=== PATIENT | female | born 1945 | race Caucasian/White ===

== ENCOUNTER 2017-08-02 11:23 | Emergency (ER) | payer MEDICARE, MEDICAID ==
[~2017-08-02] VITALS: Ht 167.6 cm; Wt 59.0 kg
[~2017-08-02 11:23] MED LIST: ABILIFY10 MG; ALBUTEROL2 PUFFS/17 IN; ALBUTEROL2.5 MG/NEB IN; AMBIEN 10MG TAB10 MG PO; BIAXIN500 MG PO; CLONIDINE HYDR0.1 MG PO; COREG25 MG; COREG25 MG PO; CORGARD 40MG TA40 MG PO; COZAAR 50 MG TA50 MG PO; GABAPENTIN300 MG PO; IPRATROPIUM 2.2.5 ML IH; LANTUS INS100 UNITS/ SC; LOSARTAN POTASS50 MG PO; MEDROL 4MG. DOSE4 MG PO; METFORMIN500 MG; METFORMIN500 MG PO; MINOCYCLINE 10100 MG PO; MULTI VITAMINS1 TA1 PO; NAPROSYN500 M1 PO; OMNICEF 300 MG300 MG PO; SIMVASTATIN10 MG PO; VALSARTAN PO; VENTOLIN H0.09 MG/AC IH; VERAPAMIL SR 2240 MG PO; ZOCOR20 MG PO; ZOFRAN4 MG PO
--- OUTSIDE RECORDS SUMMARY | 2017-08-02 11:35 | External Medical Summary Rpt | CCD ---
Author Author , INCOLA Organization [facility] Address Unknown Phone [email or web address] Providers Care Mechanic Name Role Phone PILY [facility], Unavailable Unavailable PILY [facility] Unavailable Unavailable SERVICE, [facility] Unavailable Unavailable SERVICE, [facility] Un[facility] Unavailable [place], [facility] Unavailable Unavailable LAB, [facility], Unavailable Unavailable [facility] Unavailable Unavailable TRANSP[facility]ATION [facility], [facility] Un[facility] Un[facility], [facility] [place] Un[place] [facility], [facility] Unavailable Unavailable INC, [facility]available Unavailable Hospital, [facility] Unavailable Unavailable IMAGING [facility], [facility], Unavailable Unavailable [facility] Unavailable Unavailable INTERNAL MED, [facility] Unavailable Unavailable INTERNAL MEDI, [facility] RAM[facility], Unavailable Unavailable [facility] Unavailable Unavailable SERVICES, [facility] Unavailable Unavailable F, [facility], [facility], Unavailable Unavailable [facility], [facility]available Unavailable LAB, [facility]Y LAB [facility] Unavailable Unavailable #[id number], [id number] Unavailable Unavailable EQUIPME, [facility]available Unavailable #[id number], [facility] Unavailable Unavailable DEPT NUCLEAR MEDICINE CHIEF TECHNOLOGIST, [facility] DEPT NUCLEAR MEDICINE CHIEF TECHNOLOGIST [facility] Unavailable Unavailable DEPT [facility], [facility] DEPT [facility] Unavailable [facility]available AGENCY, [facility] Unavailable Unavailable MEDICAL EQUI, [facility], Unavailable Unavailable [facility] Purpose Continuity of Care Document - 02-15-2009 through 2016 Problems Code Diagnosis DOS Provider Status J441 CHRONIC 07-15-2017 [facility] PULMONARY ELDER CARE DZ W/EXACERBAT ION [id number] UNSPECIFIED 07-07-2017 [facility]PL[facility] ED E119 TYPE 2 06-21-2017 [facility] WITHOUT COMPLICATIO NS E785 HYPERLIPIDE 05-21-2017 [facility] UNSPECIFIED LAB R7301 IMPAIRED 05-21-2017 [facility] GLUCOSE LAB I10 ESSENTIAL 05-15-2017 [facility] HYPERTENSIO AGENCY N J449 CHRONIC 05-15-2017 [facility] PULMONARY AGENCY DISEASE UNS R32 UNSPECIFIED 05-15-2017 [facility] URINARY HEALTH INCONTINENC AGENCY E C24729 ACQUIRED 05-15-2017 [facility] ABSENCE OF HEALTH LEFT LEG AGENCY ABOVE KNEE I739 PERIPHERAL 12-23-2016 [facility] DISEASE [place] UNSPECIFIED R69 ILLNESS 12-17-2016 [facility] UNSPECIFIED TRANSPORTAT ION SER J4520 MILD 10-06-2016 [facility] UNCOMPLICAT ED [id number] LAC W/O FB 07-23-2016 [facility] FINGER W/O INC DAMAGE NAIL INIT [id number] LAC W/O FB 07-23-2016 [facility]ANS, W/O DAMAGE PLLC NAIL INITIAL Z794 SENIOR CARE 07-23-2016 [facility] CURRENT USE [facility] OF INSULIN INC E1165 TYPE 2 06-21-2016 [facility] MELLITUS ELDER CARE WITH HYPERGLYCEM IA [id number] LACERATION 06-14-2016 [facility] W/O FOREIGN [facility] BODY LT INC WRIST INITIAL ENC [id number] OPEN BITE 06-14-2016 [facility] OF LEFT PHYSICIANS, WRIST PLLC INITIAL ENCOUNTER N00718 ACQUIRED 06-14-2016 [facility] ABSENCE OF [facility] UNSPECIFIED INC LEG BELOW KNEE R300 DYSURIA 09-06-2015 [facility] [place] Z23 ENCOUNTER 06-07-2015 [facility] IMMUNIZATIO HLTH DEPT N WILFRIDO 77019 DIAB W/OTH 05-28-2015 [facility] MANIFESTS [facility] TYPE II/UNS INTERNAL NOT MED UNCNTRL 90038 05-28-2015 [facility] [place] 81306 DIAB W/O 05-22-2015 [facility] COMP TYPE HEALTH DEPT II/UNS NOT NUCLEAR MEDICINE CHIEF TECHNOLOGIST STATED UNCNTRL 2810 PERNICIOUS 05-22-2015 [facility] ANEMIA HEALTH DEPT NUCLEAR MEDICINE CHIEF TECHNOLOGIST 4019 UNSPECIFIED 05-22-2015 [facility] ESSENTIAL HEALTH DEPT HYPERTENSIO NUCLEAR MEDICINE CHIEF TECHNOLOGIST N 8953 TRAUMAT AMP 05-22-2015 [facility] LEG HEALTH DEPT UNILAT@OR NUCLEAR MEDICINE CHIEF TECHNOLOGIST ABVE KNEE W/O COMP 31606 DIAB W/O 05-08-2015 [facility] MENTION AND COMP TYPE MEDICAL II/UNS TYPE EQUI UNCNTRL 8977 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 COMPLICATED 4439 UNSPECIFIED 04-23-2015 [facility] PERIPHERAL VALLEY VASCULAR INTERNAL DISEASE MED 37232 ULCER OF 04-23-2015 [facility] OTHER PART VAL[facility] OF FOOT INTERNAL MED 80133 EXTRINSIC 04-13-2015 [facility], [facility]ACY UNSPECIFIED LLC 22103 DIAB W/O 12-18-2014 [facility] COMP TYPE I VALLEY [JUV] NOT INTERNAL STATED MED UNCNTRL 2662 OTHER 12-18-2014 [facility] B-COMPLEX VALLEY DEFICIENCIE INTERNAL S MED 7295 PAIN IN 12-18-2014 [facility] SOFT VALLEY TISSUES OF INTERNAL LIMB MED 2724 OTHER AND 09-18-2014 [facility] UNSPECIFIED PHYSICIANS [place] HYPERLIPIDE UNA 7851 PALPITATION 09-18-2014 [place] [address] BORDERLINE 07-05-2014 [facility] GLAUC OPEN GRE ANGLE BL FINDINGS LOW RSK 13068 UNSPECIFIED 07-05-2014 [facility] [address] OTHER 07-05-2014 [facility] VITREOUS GRE OPACITIES 496 CHRONIC 09-14-2013 [facility]STRUCTION MEDICAL NEC EQUIPME 02918 PRESSURE 09-14-2013 [facility]TOCK MEDICAL EQUIPME 7854 GANGRENE 09-14-2013 [facility] 7291 UNSPECIFIED 05-17-2013 [facility]ALGIA [facility] AND RICHARD MYOSITIS 14363 ASTHMA, 02-09-2013 [facility] UNSPECIFIED VALLEY , INTERNAL UNSPECIFIED MED STATUS 8974 TRAUMAT AMP 02-09-2013 [facility] LEG UNILAT VALLEY LEVL NOT INTERNAL SPEC W/O MED COMP 6829 CELLULITIS 01-14-2013 [facility] AND ABSCESS VALLEY OF INTERNAL UNSPECIFIED MEDI SITE 71370 INSOMNIA 01-07-2013 [facility] UNSPECIFIED VALLEY INTERNAL MEDI 2767 HYPERPOTASS 11-30-2012 [facility] EMIA SUTTER INTERNAL MED 62009 HTN CKD UNS 11-23-2012 [facility] W/CKD VALLEY STAGE I INTERNAL THRU STAGE MED IV/UNS 5859 CHRONIC 11-23-2012 [facility] KIDNEY SUTTER DISEASE INTERNAL UNSPECIFIED MED 3319 UNSPECIFIED 11-21-2012 [facility]AL [facility]ICAL [place]ATIO [place]AGING [place] N 19352 UNSPECIFIED 11-21-2012 [facility] [place] ARTERY [facility] OCCLUSION W/INFARCT 4730 CHRONIC 11-21-2012 [facility] [place] MAXILLARY MEDICAL SINUSITIS IMAGING ASS 5849 ACUTE 11-21-2012 [facility]URE [facility] UNSPECIFIED V4975 LOWER LIMB 11-21-2012 [facility] AMPUTATION, [facility] BELOW KNEE INC 48635 LATERAL 07-28-2012 [facility] EPICONDYLIT SUTTER IS OF ELBOW INTERNAL MEDI 66366 ENTHESOPATH 07-28-2012 [facility] Y OF VALLEY UNSPECIFIED INTERNAL SITE MEDI 1101 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-2012 [facility] OSIS OF SUTTER NAIL INTERNAL MEDI 3536 PHANTOM 07-05-2012 [facility] LIMB SUTTER INTERNAL MEDI V0481 NEED 05-17-2012 [facility] CO PROPHYLACTI [facility] VACCINATION &INOCULATIO N FLU 5990 URINARY 02-29-2012 [facility] TRACT [facility] INFECTION INC SITE NOT SPECIFIED 7881 DYSURIA 02-16-2012 [facility] SUTTER INTERNAL MEDI V0382 NEED PROPH 11-04-2011 [facility] VACCINATION [facility] AGAINST INTERNAL STREP MED PNEUMONE 4660 ACUTE 09-06-2011 [facility] 03357 ACUTE 09-06-2011 [facility] BR[facility]CHOSPAS [facility] M SERVICES 11895 NONSPECIFIC 09-06-2011 [facility] ABNORMAL [facility]Y ELECTROCARD SERVICES IOGRAM 44718 DIAB 08-10-2011 [facility] W/RENAL [facility] MANIFESTS INC TYPE I [JUV TYPE] UNCNTRL 62733 LEUKOCYTOSI 08-10-2011 [facility] S [facility] UNSPECIFIED SERVICES 95603 PAIN IN 08-10-2011 [place] JOINT, MEDICAL SHOULDER IMAGING ASS REGION 38811 NAUSEA WITH 08-10-2011 [facility] VOMITING [facility]Y [facility] 81157 DIARRHEA 08-10-2011 [facility] 7919 OTHER 08-10-2011 [facility] NONSPECIFIC [facility] FINDING INC EXAMINATION OF URINE 05717 BACKGROUND 06-30-2011 [facility] RETINOPATHY 39672 OBST 01-23-2011 [facility] CHRONIC [facility] BRONCHITIS INC W/ACUTE BRONCHITIS 49179 SHORTNESS 01-23-2011 [facility] 50941 OTHER 01-23-2011 [facility] DYSPNEA AND AMBULANCE SERVICE RESPIRATORY ABNORMALITI ES 4739 UNSPECIFIED 10-21-2010 [facility] SINUSITIS VALLEY INTERNAL MEDI 490 BRONCHITIS 10-21-2010 [facility] NOT VALLEY SPECIFIED INTERNAL ACUTE OR MEDI CHRONIC V571 OTHER 05-22-2010 [facility] PHYSICAL [facility] THERAPY INC 21535 DIAB 03-17-2010 [facility] W/UNSPEC PHARMACY COMP TYPE I #591 [JUV TYPE] UNCNTRL 5283 CELLULITIS 06-08-2009 [facility] AND ABSCESS VALLEY OF ORAL INTERNAL SOFT MED TISSUES 6826 CELLULITIS 05-25-2009 [facility]ESS [facility] OF LEG INTERNAL EXCEPT FOOT MED 55245 DIABETES 04-24-2009 [facility] W/[facility] MED LAB SIS TYPE II/UNS TYPE UNCNTRL 6869 UNSPEC 03-19-2009 [facility] LOCAL MED LAB INFECTION SKIN&SUBCUT ANEOUS TISSUE 2859 UNSPECIFIED 03-01-2009 [facility] ANEMIA MED LAB V5869 LONG-TERM 02-26-2009 [facility] (CURRENT) MED LAB USE OF OTHER MEDICATIONS 0389 UNSPECIFIED 02-20-2009 [facility] SEPTICEMIA SUTTER INTERNAL MED 48269 SEPSIS 02-20-2009 [facility] INTERNAL MED V4970 LOWER LIMB 02-20-2009 [facility] AMPUTATION AMBULANCE STATUS SERVICE UNSPEC LEVEL 60951 ATHEROSLERO 02-16-2009 [facility] & [facility] CYTOLOGY LAB EXTREMITIES W/GANGRENE 27394 DIAB 02-15-2009 [facility] W/PERIPH [facility] CIRC D/O INC TYPE II/UNS TYPE UNCNTRL 01302 DEHYDRATION 02-15-2009 [facility] INC 7078 CHRONIC 02-15-2009 [facility] ULCER OF [facility] OTHER INC SPECIFIED SITE 276.7 Hyperkalemi [facility] 794.4 Abnormal [place] renal [facility] Allergies, Adverse Reactions, Alerts Type Drug Allergy Adverse Reaction to Substance Substance Reaction Severity Penicillin Unknown Unknown Penicillin G Unknown Unknown Clinical Alert Notifications Alert Diabetes: no eye exam in the last 365 days Diabetes: no lipid panel in the last 365 days Diabetes: no urine protein screening in the last 365 days Medications Na ND Rx Da Fi Fi Am Da Di Ph RX Ph St me C No te ll ll ou ys ag ar # ys at rm s nt no ma ic us Or Da si cy ia de te s n re d MA 00 03 0 No PA 90 -2 P 41 5- Lo 32 98 20 ng 5 26 13 er MG 1 Ac TA ti BL ve ET NA 51 03 1 No DO 07 -2 LO 90 5- Lo L 81 20 ng 20 22 13 er 0 MG Ac ti TA ve BL ET Ve 00 03 1 No ra 17 -2 pa 24 5- Lo mi 28 20 ng l 01 13 er Sr 0 Ac 24 ti 0M ve G Ta bl et Ga 68 03 1 No ba 08 -2 pe 40 5- Lo nt 08 20 ng in 00 13 er 1 30 Ac 0M ti G ve Ca ps ul e SO 00 03 1 No DI 40 -2 UM 97 4- Lo 98 20 ng CH 30 13 er LO 9 RI Ac DE ti ve 0. 9% SO RICKEY TI ON Sa 63 03 1 No li 80 -2 ne 70 4- Lo 10 20 ng Fl 07 13 er us 5 h Ac 10 ti ML ve Sy ri ng e SO 00 03 0 No DI 40 -2 UM 96 4- Lo 63 20 ng BI 73 13 er CA 4 RB Ac ti 8. ve 4% AB CHEVY JE CT CA 63 03 0 No LC 32 -2 IU 30 4- Lo M 31 20 ng GL 11 13 er UC 0 ON Ac AT ti E ve 10 % AL SP 46 03 0 No S 28 -2 15 70 4- Lo 00 20 ng GM 66 13 er /6 0 0 Ac ML ti ve MOREJON SP EN SI ON FS 03 2 No -2 BL 4- Lo OO 20 ng D 13 er MOREJON GA Ac R ti ve HU 00 03 2 No MA 00 -2 LO 27 4- Lo G 51 20 ng 10 01 13 er 0 7 UN Ac IT ti S/ ve ML AL ON 00 03 2 No DA 64 -2 NS 16 4- Lo ET 08 20 ng RO 02 13 er N 5 HC Ac L ti 4 ve MG /2 ML AL BI 00 06 10 01 3. 9 ME 37 MC Ac SA 71 -2 -0 00 D 00 KE ti C- 30 3- 8- 0 CA 59 OK ve EV 10 20 20 RE 6 E AC 90 09 09 JR 5 PH 10 AR WI MA LL MG CY IA M MOREJON LL F PP C OS IT OR Y AT 11 08 10 00 57 3 ME 38 MC Ac RA 70 -1 -0 .0 D 36 KE ti C- 10 7- 8- 00 CA 46 OK ve TA 02 20 20 RE 3 E IN 22 09 09 JR 3 PH CR AR WI EA MA LL M CY IA M LL F C MA 00 06 10 01 30 5 ME 37 MC Ac PA 90 -2 -0 .0 D 00 KE ti P 41 3- 8- 00 CA 59 OK ve 50 98 20 20 RE 0 E 0 86 09 09 JR MG 1 PH AR WI TA MA LL BL CY IA ET M LL F C BA 11 07 10 01 57 3 ME 37 MC Ac ZA 70 -2 -0 .0 D 71 KE ti 10 2- 8- 00 CA 20 OK ve OK 04 20 20 RE 7 E OT 62 09 09 JR EC 3 PH T AR WI CR MA LL EA CY IA M M LL F C NA 00 09 09 00 60 30 WA 70 MC Ac DO 37 -1 -2 .0 L- 36 KE ti LO 81 5- 4- 00 MA 97 OK ve L 17 20 20 RT 3 E 40 10 09 09 JR 1 PH MG AR WI MA LL TA CY IA BL M ET #5 F 91 00 06 09 00 30 3 ME 37 MC Ac 40 -2 -2 .0 D 00 KE ti 60 3- 4- 00 CA 57 OK ve 35 20 20 RE 4 E 70 09 09 JR 5 PH AR WI MA LL CY IA M LL F C ZO 00 09 09 00 14 14 WA 44 MC Ac LP 09 -1 -2 .0 L- 79 KE ti ID 30 5- 4- 00 MA 70 OK ve EM 07 20 20 RT 2 E 40 09 09 JR TA 1 PH RT AR WI RA MA LL TE CY IA M 10 #5 F 91 MG TA BL ET LA 00 09 09 00 10 28 WA 70 MC Ac NT 08 -1 -2 .0 L- 36 KE ti US 82 5- 4- 00 MA 97 OK ve 22 20 20 RT 5 E 10 03 09 09 JR 0 3 PH UN AR WI IT MA LL /M CY IA L M #5 F AL 91 MOREJON 53 09 09 00 30 15 WA 70 MC Ac LF 74 -1 -2 .0 L- 37 KE ti AM 60 8- 4- 00 MA 41 OK ve ET 27 20 20 RT 7 E HO 20 09 09 JR XA 5 PH ZO AR WI LE MA LL -T CY IA MP M #5 F DS 91 TA BL ET ME 00 09 09 00 60 30 WA 70 MC Ac TF 78 -1 -2 .0 L- 36 KE ti OR 15 5- 4- 00 MA 97 OK ve OK 05 20 20 RT 4 E N 06 09 09 JR HC 1 PH L AR WI 50 MA LL 0 CY IA MG M #5 F TA 91 BL ET 00 09 09 00 30 3 ME 38 MC Ac 40 -0 -2 .0 D 83 KE ti 60 3- 4- 00 CA 72 OK ve 35 20 20 RE 6 E 70 09 09 JR 5 PH AR WI MA LL CY IA M LL F C Vital Signs 11-23-2012 09:30 Name Value Interpretat Reference Comment ion Range Body 98.6 [degF] Temperature BP 91 mm[Hg] Diastolic BP Systolic 203 mm[Hg] Heart 89 /min Rate/Pulse Respiratory 20 /min Rate 11-23-2012 07:00 Name Value Interpretat Reference Comment ion Range O2% 94 % 11-21-2012 21:15 Name Value Interpretat Reference Comment ion Range Height 167.64 cm Weight 71.697 kg Measured 11-21-2012 19:01 Name Value Interpretat Reference Comment ion Range BP 52 mm[Hg] Diastolic BP Systolic 103 mm[Hg] 11-21-2012 17:18 Name Value Interpretat Reference Comment ion Range Body 97.8 [degF] Temperature Heart 58 /min Rate/Pulse O2% 98 % Respiratory 20 /min Rate Weight 0 [oz_av] Measured Results Labs Lab Lab Date Result Refere Interp Status Commen Order Detail nces retati t Range on COMPREHENSIVE METABOLIC PANEL (11-23-2012 06:28) Glucose 142 74-106 complet 013 mg/dL ed Bld-mCn 06:28 c BUN 12 7-18 complet Bld-mCn 013 mg/dL ed c 06:28 Creat 1.0 0.6-1.0 complet SerPl-m 013 mg/dL ed Cnc 06:28 ESTIMAT 60 50-200 complet ED 013 ML/MIN ed CREATIN 06:28 INE CLEARAN CE GFR 55 59- complet (ESTIMA 013 ML/MIN ed ZENOBIA) 06:28 Sodium 140 136-145 complet SerPl-s 013 mmoL/L ed Cnc 06:28 Potassi 4.0 3.5-5.1 complet um 013 mmoL/L ed SerPl-s 06:28 Cnc Chlorid 107 98-107 complet e 013 mmoL/L ed SerPl-s 06:28 Cnc CO2 11-23-2 25 21.0-32 complet SerPl-s 013 mmoL/L .0 ed Cnc 06:28 Calcium 11-23-2 8.6 8.5-10. complet 013 mg/dL 1 ed SerPl-m 06:28 Cnc Prot 11-23-2 7.2 6.4-8.2 complet SerPl-m 013 gm/dL ed Cnc 06:28 Albumin 11-23-2 3.2 3.4-5.0 complet 013 gm/dL ed SerPl-m 06:28 Cnc Globuli 11-23-2 4.0 1.3-3.2 complet n 013 gm/dL ed Ser-mCn 06:28 c Albumin 11-23-2 0.8 UNK 1.1-1.8 complet /Glob 013 ed SerPl-m 06:28 Rto Bilirub 11-23-2 0.3 0.2-1.0 complet 013 mg/dL ed SerPl-m 06:28 Cnc AST 11-23-2 11 U/L 15-37 complet SerPl-c 013 ed Cnc 06:28 ALT 11-23-2 27 U/L 30-65 complet SerPl-c 013 ed Cnc 06:28 ALP 11-23-2 116 U/L 50-136 complet SerPl-c 013 ed Cnc 06:28 CBC with AUTO DIFF (11-23-2012 06:28) WBC # 11-23-2 9.0 4.8-10. complet Bld 013 K/MM3 8 ed Auto 06:28 RBC # 11-23-2 3.93 4.2-5.4 complet Bld 013 M/mm3 ed Auto 06:28 Hgb 11-23-2 11.0 12.2-16 complet Bld-mCn 013 g/dL .2 ed c 06:28 Hct Fr 2 34.2 % 37.0-47 complet Bld 013 .0 ed 06:28 MCV RBC 11-23-2 87.2 fl 82.2-97 complet 013 .8 ed 06:28 MCH RBC 11-23-2 28.0 pg 27-31.2 complet Qn 013 ed Auto 06:28 MEAN 11-23-2 32.2 31.8-35 complet CORPUSC 013 g/dl .4 ed ULAR 06:28 HGB CONC RDW RBC 11-23-2 14.3 % 11.5-17 complet Auto 013 .5 ed 06:28 Platele -26-2 293 142-424 complet t Bld 013 K/mm3 ed Ql 06:28 Manual MEAN 11-23-2 7.8 fl 7.4-10. complet PLATELE 013 4 ed T 06:28 VOLUME Granulo 11-23-2 68.1 % 37.0-80 complet cytes 013 .0 ed Fr Bld 06:28 Auto LYMPH % --2 24.4 % 10-50.0 complet 013 ed 06:28 Monocyt 03-26-2 6.1 % 1.7-9.3 complet es Fr 013 ed Bld 06:28 Auto Eosinop -26-2 1.0 % 0.1-12. complet hil Fr 013 0 ed Bld 06:28 Auto Basophi -26-2 0.3 % 0.1-2.0 complet ls Fr 013 ed Bld 06:28 Auto Granulo 26-2 6.2 1.8-7.8 complet cytes # 013 K/mm3 ed Bld 06:28 Auto Lymphoc -26-2 2.2 0.7-4.5 complet ytes Fr 013 K/mm3 ed Bld 06:28 Auto Monocyt 03-26-2 0.6 0.1-1.0 complet es # 013 K/mm3 ed Bld 06:28 Auto Eosinop 03-26-2 0.1 0.0-0.4 complet hil # 013 K/mm3 ed Bld 06:28 Auto Basophi -26-2 0.0 0-0.2 complet ls # 013 K/MM3 ed Bld 06:28 Auto Glucose BldC [facility]comtr[facility] (11-22-2012 20:33) Glucose 120 70-110 complet BldC 013 mg/dl ed Glucomt 20:33 r-mCnc Glucose BldC Glucomtr-nc (11-22-2012 16:36) Glucose 247 70-110 complet BldC 013 mg/dl ed Glucomt 16:36 r-mCnc Glucose BldC Glucomtr-nc (11-22-2012 11:42) Glucose 03-25-2 149 70-110 complet BldC 013 mg/dl ed Glucomt 11:42 r-[facility] BASIC METABOLIC PANEL (11-22-2012 06:45) Glucose 124 74-106 complet 013 mg/dL ed Bld-mCn 06:45 c BUN 26 7-18 complet Bld-mCn 013 mg/dL ed c 06:45 Creat 1.1 0.6-1.0 complet SerPl-m 013 mg/dL ed Cnc 06:45 ESTIMAT 55 50-200 complet ED 013 ML/MIN ed CREATIN 06:45 INE CLEARAN CE GFR 49 59- complet (ESTIMA 013 ML/MIN ed ZENOBIA) 06:45 Sodium 141 136-145 complet SerPl-s 013 mmoL/L ed Cnc 06:45 Potassi 4.8 3.5-5.1 complet um 013 mmoL/L ed SerPl-s 06:45 Cnc Chlorid 107 98-107 complet e 013 mmoL/L ed SerPl-s 06:45 Cnc CO2 27 21.0-32 complet SerPl-s 013 mmoL/L .0 ed Cnc 06:45 Calcium 8.5 8.5-10. complet 013 mg/dL 1 ed SerPl-m 06:45 Cnc Glucose BldC [facility] (11-22-2012 06:39) Glucose 134 70-110 complet BldC 013 mg/dl ed Glucomt 06:39 [facility] Potassium SerPl-sCnc (11-21-2012 19:30) Potassi 7.8 3.5-5.1 High complet um 013 mmoL/L alert ed SerPl-s 19:30 [facility] COMPREHENSIVE METABOLIC PANEL (11-21-2012 17:45) Glucose 192 74-106 complet 013 mg/dL ed Bld-mCn 17:45 c BUN 38 7-18 complet Bld-mCn 013 mg/dL ed c 17:45 Creat 1.7 0.6-1.0 complet SerPl-m 013 mg/dL ed Cnc 17:45 ESTIMAT 03-24-2 36 50-200 complet ED 013 ML/MIN ed CREATIN 17:45 INE CLEARAN CE GFR 30 59- complet (ESTIMA 013 ML/MIN ed ZENOBIA) 17:45 Sodium 137 136-145 complet SerPl-s 013 mmoL/L ed Cnc 17:45 Potassi 7.3 3.5-5.1 High complet um 013 mmoL/L alert ed SerPl-s 17:45 Cnc Chlorid 104 98-107 complet e 013 mmoL/L ed SerPl-s 17:45 Cnc CO2 27 21.0-32 complet SerPl-s 013 mmoL/L .0 ed Cnc 17:45 Calcium 8.7 8.5-10. complet 013 mg/dL 1 ed SerPl-m 17:45 Cnc Prot 7.6 6.4-8.2 complet SerPl-m 013 gm/dL ed Cnc 17:45 Albumin 3.5 3.4-5.0 complet 013 gm/dL ed SerPl-m 17:45 Cnc GLOBULI 4.0 1.3-3.2 complet N 013 gm/dL ed 17:45 ALB/SWETA 0.9 UNK 1.1-1.8 complet B RATIO 013 ed 17:45 Bilirub 2 0.2 0.2-1.0 complet 013 mg/dL ed SerPl-m 17:45 Cnc AST 10 U/L 15-37 complet SerPl-c 013 ed Cnc 17:45 ALT 28 U/L 30-65 complet SerPl-c 013 ed Cnc 17:45 ALP 132 U/L 50-136 complet SerPl-c 013 ed Cnc 17:45 ACETONE, SERUM (11-21-2012 17:45) ACETONE NONE NOT complet , SERUM 013 DETECTE DETECTD ed 17:45 D CBC with AUTO DIFF (11-21-2012 17:45) WBC # 11-21-2 13.8 4.8-10. complet Bld 013 K/MM3 8 ed Auto 17:45 RBC # 11-21-2 4.19 4.2-5.4 complet Bld 013 M/mm3 ed Auto 17:45 Hgb 03-24-2 11.7 12.2-16 complet Bld-mCn 013 g/dL .2 ed c 17:45 Hct Fr -24-2 36.7 % 37.0-47 complet Bld 013 .0 ed 17:45 MCV RBC 03-24-2 87.6 fl 82.2-97 complet 013 .8 ed 17:45 MCH RBC -24-2 27.8 pg 27-31.2 complet Qn 013 ed Auto 17:45 MEAN -24-2 31.7 31.8-35 complet CORPUSC 013 g/dl .4 ed ULAR 17:45 HGB CONC RDW RBC -24-2 14.5 % 11.5-17 complet Auto 013 .5 ed 17:45 Platele 03-24-2 335 142-424 complet t Bld 013 K/mm3 ed Ql 17:45 Manual MEAN 24-2 9.1 fl 7.4-10. complet PLATELE 013 4 ed T 17:45 VOLUME Granulo -24-2 74.6 % 37.0-80 complet cytes 013 .0 ed Fr Bld 17:45 Auto LYMPH % 03-24-2 18.9 % 10-50.0 complet 013 ed 17:45 Monocyt 03-24-2 4.5 % 1.7-9.3 complet es Fr 013 ed Bld 17:45 Auto Eosinop 03-24-2 1.6 % 0.1-12. complet hil Fr 013 0 ed Bld 17:45 Auto Basophi 03-24-2 0.4 % 0.1-2.0 complet ls Fr 013 ed Bld 17:45 Auto Granulo 03-24-2 10.3 1.8-7.8 complet cytes # 013 K/mm3 ed Bld 17:45 Auto Lymphoc 03-24-2 2.6 0.7-4.5 complet ytes Fr 013 K/mm3 ed Bld 17:45 Auto Monocyt 03-24-2 0.6 0.1-1.0 complet es # 013 K/mm3 ed Bld 17:45 Auto Eosinop 03-24-2 0.2 0.0-0.4 complet hil # 013 K/mm3 ed Bld 17:45 Auto Basophi 03-24-2 0.1 0-0.2 [facility] # 013 K/MM3 ed Bld 17:45 Auto Procedures Procedure DOS Code Location Performer Comment [id number] LYDIA FREEMAN N ABOVE 9 [facility] Encounters Encounter Start End Date Code Location Performer Type Date HOME [facility], 7 7 HOME [facility]PATIENT [facility] [place] [facility], 7 7 HOME [facility] [place] [facility], 7 7 HOME [facility] [place] [facility], 6 6 HOME INPATIENT HEALTH [facility] LYDIA - 6 6 [facility] LYDIA - 6 6 [facility] 6 6 HOME INPATIENT HEALTH AGENCY [place] [facility], 5 5 DIST OTHER HEALTH [facility]PT [facility], 5 5 DIST OTHER HEALTH DEPT [facility] LYDIA - 5 5 [facility] OUTPATIEN INC [facility] LYDIA - 3 3 [facility] LYDIA [facility] 3 3 [facility] Inpatient [facility] Lydia Mercado ([place]) 3 17:52 3 09:30 [facility] LYDIA - 3 3 [facility] INPATIENT [facility] LYDIA - 2 2 [facility] LYDIA [facility] 2 2 [facility] LYDIA - 2 2 [facility] LYDIA - 2 2 [facility] LYD[facility] - 2 2 [facility] - 2 2 [facility] LYDIA [facility] 2 2 [facility] LYDIA - 2 2 [facility] LYDIA - 1 1 [facility] LYDIA [facility] 1 1 [facility] LYDIA - 0 0 [facility] HOME [facility], 9 9 DIST OTHER HEALTH DEPT [facility] HOME [facility], 9 9 DIST OTHER HEALTH [facility], 9 9 DIST OTHER HEALTH DEPT NUCLEAR MEDICINE CHIEF TECHNOLOGIST [facility] 9 9 [facility] 9 9 [facility] 9 9 [facility] 9 9 [facility] HOSPITAL LYDIA - 9 9 [facility] INPATIENT INC
--- OUTSIDE RECORDS SUMMARY | 2017-08-02 11:35 | External Medical Summary Rpt | CCD ---
Author Author , NICOLA Organization NICOLA Address Unknown Phone [email or web address] Care Team Providers Care Chair Mechanic Name Role Phone PILY HSIEH, Unavailable Unavailable PILY HSIEH [email or web address] Unavailable Unavailable SERVICE, [email or web address] Unavailable Unavailable SERVICE, [email or web address] Unavailable Unavailable [place], [facility] Unavailable Unavailable LAB, [facility], Unavailable Unavailable [facility] Unavailable Unavailable TRANSPORTATION SER, [facility] Unavailable Unavailable CENTER, [facility] Unavailable Unavailable CARE, [facility] Unavailable Unavailable INC, [facility] Unavailable Unavailable Hospital, [facility] MEDICAL Unavailable Unavailable IMAGING ASS, [facility], Unavailable Unavailable [facility] Unavailable Unavailable INTERNAL MED, [facility] INTERNAL MED [facility] Unavailable Unavailable INTERNAL MEDI, [facility] LINDSAY RAMSAY, Unavailable Unavailable LINDSAY RAMSAY [facility] Unavailable Unavailable SERVICES, [facility] Unavailable Unavailable F, [facility] Un[facility] Unavailable LLC, [facility], Unavailable Unavailable [facility], [facility] Unavailable Unavailable LAB, PATHOLOGY & CYTOLOGY LAB [facility] Unavailable Unavailable #[id number], [id number] Unavailable Unavailable EQUIPME, [facility] Unavailable [facility]available #591, [facility] Unavailable [facility]available DEPT COUTURE ALTERATIONS DRESSMAKER, [facility] DEPT COUTURE ALTERATIONS [facility] Unavailable Unavailable DEPT [facility], [facility] DEPT [facility] Unavailable Unavailable AGENCY, [facility] Unavailable Unavailable MEDICAL EQUI, [facility], Unavailable Unavailable [facility] Purpose Continuity of Care Document - 02-15-2009 through 2016 Problems Code Diagnosis DOS Provider Status J441 CHRONIC 07-15-2017 [facility] OBSTRUCTIVE [facility] PULMONARY ELDER CARE DZ W/EXACERBAT ION Q23810 UNSPECIFIED 07-07-2017 [facility]PL[facility] [...] [facility] URINARY HEALTH INCONTINENC AGENCY E [id number] ACQUIRED 05-15-2017 [facility] ABSENCE OF HEALTH LEFT LEG AGENCY ABOVE KNEE I739 PERIPHERAL 12-23-2016 [facility] DISEASE [place] UNSPECIFIED R69 ILLNESS 12-17-2016 [facility] UNSPECIFIED TRANSPORTAT ION SER J4520 MILD 10-06-2016 [facility] UNCOMPLICAT ED [id number] LAC W/O FB 07-23-2016 [facility] RT [facility] FINGER W/O INC DAMAGE NAIL INIT [id number] LAC W/O FB 07-23-2016 [facility] UNS [facility]ANS, W/O DAMAGE PLLC NAIL INITIAL Z794 RESIDENTIAL 07-23-2016 [facility] CURRENT USE [facility] OF INSULIN INC E1165 TYPE 2 06-21-2016 [facility] DIABETES [facility] MELLITUS ELDER CARE WITH HYPERGLYCEM IA [id number] LACERATION 06-14-2016 [facility] W/O FOREIGN [facility] BODY LT INC WRIST INITIAL ENC [id number] OPEN BITE 06-14-2016 [facility] OF LEFT PHYSICIANS, WRIST PLLC INITIAL ENCOUNTER F75156 ACQUIRED 06-14-2016 [facility] ABSENCE OF [facility] UNSPECIFIED INC LEG BELOW KNEE R300 DYSURIA 09-06-2015 [facility] LA Z23 ENCOUNTER 06-07-2015 [facility] FOR DISTRICT IMMUNIZATIO HLTH DEPT N WILFRIDO 75603 DIAB W/OTH 05-28-2015 [facility] MANIFESTS [facility] TYPE II/UNS INTERNAL NOT MED UNCNTRL 52946 05-28-2015 [facility] TRANSPORTAT ION SER 45722 DIAB W/O 05-22-2015 [facility] DIST COMP TYPE HEALTH DEPT II/UNS NOT COUTURE ALTERATIONS DRESSMAKER STATED UNCNTRL 2810 PERNICIOUS 05-22-2015 [facility] ANEMIA HEALTH DEPT COUTURE ALTERATIONS DRESSMAKER 4019 UNSPECIFIED 05-22-2015 [facility] ESSENTIAL HEALTH DEPT HYPERTENSIO COUTURE ALTERATIONS DRESSMAKER N 8916 TRAUMAT AMP 05-22-2015 [facility] LEG HEALTH DEPT UNILAT@OR COUTURE ALTERATIONS DRESSMAKER ABVE KNEE W/O COMP 41832 DIAB W/O 05-08-2015 [facility] MENTION AND COMP TYPE MEDICAL II/UNS TYPE EQUI UNCNTRL 8977 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 COMPLICATED 4439 UNSPECIFIED 04-23-2015 [facility] PERIPHERAL [facility] VASCULAR INTERNAL DISEASE MED 23592 ULCER OF 04-23-2015 [facility] OTHER PART [facility] OF FOOT INTERNAL MED 86846 EXTRINSIC 04-13-2015 [facility], PHARMACY UNSPECIFIED LLC 56730 DIAB W/O 12-18-2014 [facility] COMP TYPE I VALLEY [JUV] NOT INTERNAL STATED MED UNCNTRL 2662 OTHER 12-18-2014 [facility] B-COMPLEX VAL[facility] DEFICIENCIE INTERNAL S MED 7295 PAIN IN 12-18-2014 [facility] SOFT [facility] TISSUES OF INTERNAL LIMB MED 2724 OTHER AND 09-18-2014 [facility] UNSPECIFIED PHYSICIANS [place] HYPERLIPIDE UNA 7851 PALPITATION 09-18-2014 [place] [address] BORDERLINE 07-05-2014 [facility] OPEN GRE ANGLE BL FINDINGS LOW RSK 07722 UNSPECIFIED 07-05-2014 [facility] [place] [address] OTHER 07-05-2014 [facility] VITREOUS GRE OPACITIES 496 CHRONIC 09-14-2013 [facility] OBSTRUCTION MEDICAL NEC EQUIPME 94344 PRESSURE 09-14-2013 [facility] ULCER HOME BUTTOCK MEDICAL EQUIPME 7854 GANGRENE 09-14-2013 [facility] 7291 UNSPECIFIED 05-17-2013 [facility]ALGIA [facility]IANS AND RICHARD MYOSITIS 88291 ASTHMA, 02-09-2013 [facility] UNSPECIFIED VALLEY , INTERNAL UNSPECIFIED MED STATUS 8974 TRAUMAT AMP 02-09-2013 [facility] LEG UNILAT VALLEY LEVL NOT INTERNAL SPEC W/O MED COMP 6829 CELLULITIS 01-14-2013 [facility] AND ABSCESS VAL[facility] OF INTERNAL UNSPECIFIED MEDI SITE 39606 INSOMNIA 01-07-2013 [facility] UNSPECIFIED VALLEY INTERNAL MEDI 2767 HYPERPOTASS 11-30-2012 [facility] EMIA [place] INTERNAL MED 40962 HTN CKD UNS 11-23-2012 [facility] W/CKD VALLEY STAGE I INTERNAL THRU STAGE MED IV/UNS 5859 CHRONIC 11-23-2012 [facility] KIDNEY [place] DISEASE INTERNAL UNSPECIFIED MED 3319 UNSPECIFIED 11-21-2012 [facility] [place] [address] UNSPECIFIED 11-21-2012 [facility] ART[facility] OCCLUSION W/INFARCT 4730 CHRONIC 11-21-2012 [facility] SINUSITIS [facility] 5849 ACUTE 11-21-2012 [facility] FAILURE SERVICES UNSPECIFIED V4975 LOWER LIMB 11-21-2012 [facility] AMPUTATION, [facility] BELOW KNEE INC 70718 LATERAL 07-28-2012 [facility] EPICONDYLIT [place] IS OF ELBOW INTERNAL MEDI 40981 ENTHESOPATH 07-28-2012 [facility] Y OF VALLEY UNSPECIFIED INTERNAL SITE MEDI 1101 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-2012 [facility] OSIS OF [place] NAIL INTERNAL MEDI 3536 PHANTOM 07-05-2012 [facility] LIMB [place] INTERNAL MEDI V0481 NEED 05-17-2012 [facility] CO PROPHYLACTI [facility] VACCINATION &INOCULATIO N FLU 5990 URINARY 02-29-2012 [facility] TRACT [facility] INFECTION INC SITE NOT SPECIFIED 7881 DYSURIA 02-16-2012 [facility] [place] INTERNAL MEDI V0382 NEED PROPH 11-04-2011 [facility] VACCINATION [facility] AGAINST INTERNAL STREP MED PNEUMONE 4660 ACUTE 09-06-2011 [facility] 56657 ACUTE 09-06-2011 [facility] BRONCHOSPAS [facility]ERGENC[facility] M SERVICES 19530 NONSPECIFIC 09-06-2011 [facility] ABNORMAL [facility]ERGENCY ELECTROCARD SERVICES IOGRAM 23083 DIAB 08-10-2011 [facility] W/RENAL [facility] MANIFESTS INC TYPE I [JUV TYPE] UNCNTRL 94081 LEUKOCYTOSI 08-10-2011 [facility] S [facility]ERGENCY UNSPECIFIED SERVICES 31540 PAIN IN 08-10-2011 [facility]ICAL SHOULDER [facility] REGION 38784 NAUSEA WITH 08-10-2011 [facility] VOMITING [facility]Y SERVICES 10024 DIARRHEA 08-10-2011 [facility] 7919 OTHER 08-10-2011 [facility] NONSPECIFIC [facility] FINDING INC EXAMINATION OF URINE 86765 BACKGROUND 06-30-2011 [facility] RETINOPATHY 47825 OBST 01-23-2011 [facility] CHRONIC [facility] BRONCHITIS INC W/ACUTE BRONCHITIS 62040 SHORTNESS 01-23-2011 [facility] 50706 OTHER 01-23-2011 [facility] DYSPNEA AND AMBULANCE SERVICE RESPIRATORY ABNORMALITI ES 4739 UNSPECIFIED 10-21-2010 [facility] SINUSITIS VALLEY INTERNAL MEDI 490 BRONCHITIS 10-21-2010 [facility] NOT VALLEY SPECIFIED INTERNAL ACUTE OR MEDI CHRONIC V571 OTHER 05-22-2010 [facility] PHYSICAL [facility] THERAPY INC 94839 DIAB 03-17-2010 [facility] W/UNSPEC PHARMACY COMP TYPE I #591 [JUV TYPE] UNCNTRL 5283 CELLULITIS 06-08-2009 [facility] AND ABSCESS [facility] OF ORAL INTERNAL SOFT MED TISSUES 6826 CELLULITIS 05-25-2009 [facility]ESS [facility] OF LEG INTERNAL EXCEPT FOOT MED 90803 DIABETES 04-24-2009 [facility] W/[facility] MED LAB SIS TYPE II/UNS TYPE UNCNTRL 6869 UNSPEC 03-19-2009 [facility] LOCAL MED LAB INFECTION SKIN&SUBCUT ANEOUS TISSUE 2859 UNSPECIFIED 03-01-2009 [facility] ANEMIA MED LAB V5869 LONG-TERM 02-26-2009 [facility] (CURRENT) MED LAB USE OF OTHER MEDICATIONS 0389 UNSPECIFIED 02-20-2009 [facility] SEPTICEMIA [place] INTERNAL MED 86826 SEPSIS 02-20-2009 [facility] INTERNAL MED V4970 LOWER LIMB 02-20-2009 [facility] AMPUTATION AMBULANCE STATUS SERVICE UNSPEC LEVEL 97113 ATHEROSLERO 02-16-2009 [facility]Y & [facility] CYTOLOGY LAB EXTREMITIES W/GANGRENE 08045 DIAB 02-15-2009 [facility] W/PERIPH [facility] CIRC D/O INC TYPE II/UNS TYPE UNCNTRL 71223 DEHYDRATION 02-15-2009 [facility] INC 7078 CHRONIC 02-15-2009 [facility] ULCER OF [facility] OTHER INC SPECIFIED SITE 276.7 Hyperkalemi [facility] 794.4 Abnormal [place] renal [facility] Allergies, Adverse Reactions, Alerts Type Drug [...] C- 30 3- 8- 0 CA 59 VA ve EV 10 20 20 RE 6 E AC 90 09 09 JR 5 PH 10 AR WI MA LL MG CY IA M MOREJON LL F PP C OS IT OR Y AT 11 08 10 00 57 3 ME 38 MC Ac RA 70 -1 -0 .0 D 36 KE ti C- 10 7- 8- 00 CA 46 VA ve TA 02 20 20 RE 3 E IN 22 09 09 JR 3 PH CR AR WI EA MA LL M CY IA M LL F C MA 00 06 10 01 30 5 ME 37 MC Ac PA 90 -2 -0 .0 D 00 KE ti P 41 3- 8- 00 CA 59 VA ve 50 98 20 20 RE 0 E 0 86 09 09 JR MG 1 PH AR WI TA MA LL BL CY IA ET M LL F C BA 11 07 10 01 57 3 ME 37 MC Ac ZA 70 -2 -0 .0 D 71 KE ti 10 2- 8- 00 CA 20 VA ve WA 04 20 20 RE 7 E OT 62 09 09 JR EC 3 PH T AR WI CR MA LL EA CY IA M M LL F C NA 00 09 09 00 60 30 WA 70 MC Ac DO 37 -1 -2 .0 L- 36 KE ti LO 81 5- 4- 00 MA 97 VA ve L 17 20 20 RT 3 E 40 10 09 09 JR 1 PH MG AR WI MA LL TA CY IA BL M ET #5 F 91 00 06 09 00 30 3 ME 37 MC Ac 40 -2 -2 .0 D 00 KE ti 60 3- 4- 00 CA 57 VA ve 35 20 20 RE 4 E 70 09 09 JR 5 PH AR WI MA LL CY IA M LL F C ZO 00 09 09 00 14 14 WA 44 MC Ac LP 09 -1 -2 .0 L- 79 KE ti ID 30 5- 4- 00 MA 70 VA ve EM 07 20 20 RT 2 E 40 09 09 JR TA 1 PH RT AR WI RA MA LL TE CY IA M 10 #5 F 91 MG TA BL ET LA 00 09 09 00 10 28 WA 70 MC Ac NT 08 -1 -2 .0 L- 36 KE ti US 82 5- 4- 00 MA 97 VA ve 22 20 20 RT 5 E 10 03 09 09 JR 0 3 PH UN AR WI IT MA LL /M CY IA L M #5 F AL 91 MOREJON 53 09 09 00 30 15 WA 70 MC Ac LF 74 -1 -2 .0 L- 37 KE ti AM 60 8- 4- 00 MA 41 VA ve ET 27 20 20 RT 7 E HO 20 09 09 JR XA 5 PH ZO AR WI LE MA LL -T CY IA MP M #5 F DS 91 TA BL ET ME 00 09 09 00 60 30 WA 70 MC Ac TF 78 -1 -2 .0 L- 36 KE ti OR 15 5- 4- 00 MA 97 VA ve VA 05 20 20 RT 4 E N 06 09 09 JR HC 1 PH L AR WI 50 MA LL 0 CY IA MG M #5 F TA 91 BL ET 00 09 09 00 30 3 ME 38 MC Ac 40 -0 -2 .0 D 83 KE ti 60 3- 4- 00 CA 72 VA ve 35 20 20 RE 6 E [...] K/MM3 ed Bld 06:28 Auto Glucose BldC Glucomtr-[facility] (11-22-2012 20:33) Glucose 120 70-110 complet BldC 013 mg/dl ed Glucomt 20:33 r-mCnc Glucose BldC Glucomtr-nc (11-22-2012 16:36) Glucose 247 70-110 complet BldC 013 mg/dl ed Glucomt 16:36 r-mCnc Glucose BldC Glucomtr-nc (11-22-2012 11:42) Glucose 03-25-2 149 70-110 complet BldC 013 mg/dl ed Glucomt 11:42 r-[facility] BASIC METABOLIC PANEL (11-22-2012 06:45) Glucose 124 [...] 1 ed SerPl-m 06:45 Cnc Glucose BldC Glucomtr-[facility] (11-22-2012 06:39) Glucose 134 70-110 complet BldC 013 mg/dl ed Glucomt 06:39 [facility] Potassium SerPl-sCnc (11-21-2012 19:30) Potassi 7.8 3.5-5.1 High complet um 013 mmoL/L alert ed SerPl-s 19:30 [facility] COMPREHENSIVE METABOLIC PANEL (11-21-2012 17:45) Glucose 192 [...] 17:45 Auto Basophi 03-24-2 0.1 0-0.2 [facility] # 013 K/MM3 ed Bld 17:45 Auto Procedures Procedure DOS Code Location Performer Comment AMPLLOYDO 8417 [facility] FREEMAN N ABOVE 9 [facility] K[facility] INC INC Encounters Encounter Start End Date Code Location Performer Type Date HOME [facility], 7 7 HOME [facility] [place] [facility] [facility], 7 7 HOME [facility] [place] [address], 7 7 HOME [facility]PATIENT [facility]ALTH [facility]Y [place] [address] 6 6 HOME [facility]PATIENT [facility] - 6 6 [facility] - 6 6 [facility] 6 6 HOME INPATIENT HEALTH AGENCY [place] [address], 5 5 DIST OTHER [facility]ALTH DEPT [facility] 5 5 DIST OTHER HEALTH DEPT [facility] L[facility]IA - 5 5 [facility] OUTPATIEN [facility] LYDIA - 3 3 [facility] - 3 3 [facility] Lydia Mercado ([place]) 3 17:52 3 09:30 [facility] - 3 3 [facility] INPATIENT [facility] L[facility] - 2 2 [facility] OUTPATIEN [facility] L[facility] - 2 2 [facility]PATIEN [facility] - 2 2 [facility]PATIEN [facility] - 2 2 [facility]PATI[facility] - 2 2 [facility] OUTPATIEN [facility] - 2 2 [facility]PAT[facility] - 2 2 [facility]PATIEN [facility] - 2 2 [facility]PATI[facility] - 1 1 [facility]PATI[facility] - 1 1 [facility] - 0 0 [facility] 9 9 DIST OTHER HEALTH DEPT [facility], 9 9 DIST OTHER [facility], 9 9 DIST OTHER HEALTH DEPT COUTURE ALTERATIONS DRESSMAKER [facility] 9 9 [facility] - OTHER E [facility] 9 9 [facility] OTHER E [facility] 9 9 [facility] - OTHER E [facility] 9 9 [facility] - OTHER E HOSPITAL [facility] - 9 9 [facility] INPATIENT INC
--- OUTSIDE RECORDS SUMMARY | 2017-08-02 11:37 | External Medical Summary Rpt ---
Author Author NICOLA Plasencia, [employer] Organization [employer] Address Unknown Phone Unavailable
--- OUTSIDE RECORDS SUMMARY | 2017-08-02 11:37 | External Medical Summary Rpt | CCD ---
Author Author , NICOLA PETERSEN Address Unknown Phone [email or web address] Care Team Providers Care Sock Ironer Name Role Phone PILY HSIEH, Unavailable Unavailable PILY HSIEH [facility] Unavailable Unavailable SERVICE, [facility] Unavailable Unavailable SERVICE, [facility] Unavailable [place], [facility] Unavailable Unavailable LAB, [facility] Unavailable Unavailable [facility] Unavailable Unavailable TRANSPORTATION SER, [facility] Unavailable Unavailable CENTER, [facility] Unavailable Unavailable CARE, [facility] Unavailable Unavailable INC, [facility] Unavailable Unavailable [facility], [facility]available Unavailable [facility] Unavailable Unavailable [facility], [facility] Unavailable [facility]available INTERNAL MEDI, [facility] INTER[facility], Unavailable Unavailable [facility] Unavailable Unavailable SERVICES, [facility]available Unavailable F, [facility] Unavailable Unavailable LLC, [facility], Unavailable Unavailable PLL[facility], [facility] Unavailable Unavailable LAB, [facility] Unavailable Unavailable #[id number], [id number] Unavailable Unavailable EQUIPME, [facility]available [facility]available #591, [facility] Unavailable Unavailable DEPT MEAT TRIMMER, [facility] DE[facility] TR[facility] Unavailable Unavailable DEPT [facility], [facility] Unavailable Unavailable AGENCY, [facility] Unavailable Unavailable MEDICAL EQUI, [facility], Unavailable Unavailable [facility] Purpose Continuity of Care Document - 02-15-2009 through 2016 Problems Code Diagnosis DOS Provider Status J441 CHRONIC 07-15-2017 [facility] PULMONARY [facility] CARE DZ W/EXACERBAT ION [id number] UNSPECIFIED 07-07-2017 [facility] [...] [facility] URINARY HEALTH INCONTINENC AGENCY E [id number] ACQUIRED 05-15-2017 [facility] ABSENCE OF HEALTH LEFT LEG AGENCY ABOVE KNEE I739 PERIPHERAL 12-23-2016 [facility] DISEASE [place] UNSPECIFIED R69 ILLNESS 12-17-2016 [facility] UNSPECIFIED TRANSPORTAT ION SER J4520 MILD 10-06-2016 [facility] UNCOMPLICAT ED [id number] LAC W/O FB 07-23-2016 [facility] FINGER W/O INC DAMAGE NAIL INIT [id number] LAC W/O FB 07-23-2016 [facility]NS [facility], W/O DAMAGE PLLC NAIL INITIAL Z794 SENIOR LIVING 07-23-2016 [facility] CURRENT USE [facility] OF INSULIN INC E1165 TYPE 2 06-21-2016 [facility] [place] MELLITUS ELDER CARE WITH HYPERGLYCEM IA [id number] LACERATION 06-14-2016 [facility] W/O FOREIGN [facility] BODY LT INC WRIST INITIAL ENC [id number] OPEN BITE 06-14-2016 [facility] OF LEFT PHYSICIANS, WRIST PLLC INITIAL ENCOUNTER R03786 ACQUIRED 06-14-2016 [facility] ABSENCE OF [facility] UNSPECIFIED INC LEG BELOW KNEE R300 DYSURIA 09-06-2015 [facility] LA Z23 ENCOUNTER 06-07-2015 [facility] IMMUNIZATIO HLTH DEPT N WILFRIDO 66495 DIAB W/OTH 05-28-2015 [facility] TYPE II/UNS INTERNAL NOT MED UNCNTRL 47841 05-28-2015 [facility] TRANSPORT[facility] ION [place] 89750 DIAB W/O 05-22-2015 [facility] COMP TYPE HEALTH DEPT II/UNS NOT MEAT TRIMMER STATED UNCNTRL 2810 PERNICIOUS 05-22-2015 [facility] ANEMIA HEALTH DEPT MEAT TRIMMER 4019 UNSPECIFIED 05-22-2015 [facility] ESSENTIAL HEALTH DEPT HYPERTENSIO MEAT TRIMMER N 8972 TRAUMAT AMP 05-22-2015 [facility] LEG HEALTH DEPT UNILAT@OR MEAT TRIMMER ABVE KNEE W/O COMP 22354 DIAB W/O 05-08-2015 [facility] MENTION AND COMP TYPE MEDICAL II/UNS TYPE EQUI UNCNTRL 8977 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 COMPLICATED 4439 UNSPECIFIED 04-23-2015 [facility] PERIPHERAL [facility] VASCULAR INTERNAL DISEASE MED 11949 ULCER OF 04-23-2015 [facility] OTHER PART VAL[facility] OF FOOT INTERNAL MED 86839 EXTRINSIC 04-13-2015 [facility], PHARMACY UNSPECIFIED LLC 00772 DIAB W/O 12-18-2014 [facility] COMP TYPE I VALLEY [JUV] NOT INTERNAL STATED MED UNCNTRL 2662 OTHER 12-18-2014 [facility] B-COMPLEX VAL[facility] DEFICIENCIE INTERNAL S MED 7295 PAIN IN 12-18-2014 [facility] SOFT [facility] TISSUES OF INTERNAL LIMB MED 2724 OTHER AND 09-18-2014 [facility] UNSPECIFIED PHYSICIANS [place] HYPERLIPIDE UNA 7851 PALPITATION 09-18-2014 [place] [address] BORDERLINE 07-05-2014 [facility]UC OPEN GRE ANGLE BL FINDINGS LOW RSK 04613 UNSPECIFIED 07-05-2014 [facility] [place] [address] OTHER 07-05-2014 [facility] VITREOUS GRE OPACITIES 496 CHRONIC 09-14-2013 [facility] OBSTRUCTION MEDICAL NEC EQUIPME 29450 PRESSURE 09-14-2013 [facility] ULCER HOME BUTTOCK MEDICAL EQUIPME 7854 GANGRENE 09-14-2013 [facility] EQUIP[facility] 7291 UNSPECIFIED 05-17-2013 [facility] MYALGIA PHYSICIANS AND LA MYOSITIS 19228 ASTHMA, 02-09-2013 [facility] UNSPECIFIED VALLEY , INTERNAL UNSPECIFIED MED STATUS 8974 TRAUMAT AMP 02-09-2013 [facility] LEG UNILAT VALLEY LEVL NOT INTERNAL SPEC W/O MED COMP 6829 CELLULITIS 01-14-2013 [facility] AND ABSCESS VALLEY OF INTERNAL UNSPECIFIED MEDI SITE 86283 INSOMNIA 01-07-2013 [facility] UNSPECIFIED VALLEY INTERNAL MEDI 2767 HYPERPOTASS 11-30-2012 [facility] EMIA [facility] INTERNAL MED 05399 HTN CKD UNS 11-23-2012 [facility] W/CKD VALLEY STAGE I INTERNAL THRU STAGE MED IV/UNS 5859 CHRONIC 11-23-2012 [facility] KIDNEY [facility] DISEASE INTERNAL UNSPECIFIED MED 3319 UNSPECIFIED 11-21-2012 [facility] [place] N 22044 UNSPECIFIED 11-21-2012 [facility] ART[facility] OCCLUSION W/INFARCT 4730 CHRONIC 11-21-2012 [facility] SINUSITIS [facility] 5849 ACUTE 11-21-2012 [facility] FAILURE SERVICES UNSPECIFIED V4975 LOWER LIMB 11-21-2012 [facility] AMPUTATION, [facility] BELOW KNEE INC 56274 LATERAL 07-28-2012 [facility] EPICONDYLIT [facility] IS OF ELBOW INTERNAL MEDI 30733 ENTHESOPATH 07-28-2012 [facility] Y OF VALLEY UNSPECIFIED INTERNAL SITE MEDI 1101 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-2012 [facility] OSIS OF VALLEY NAIL INTERNAL MEDI 3536 PHANTOM 07-05-2012 [facility] LIMB [facility] INTERNAL MEDI V0481 NEED 05-17-2012 [facility] VACCINATION &INOCULATIO N FLU 5990 URINARY 02-29-2012 [facility] TRACT [facility] INFECTION INC SITE NOT SPECIFIED 7881 DYSURIA 02-16-2012 [facility] INTERNAL MEDI V0382 NEED PROPH 11-04-2011 [facility] VACCINATION [facility] AGAINST INTERNAL STREP MED PNEUMONE 4660 ACUTE 09-06-2011 [facility] 29649 ACUTE 09-06-2011 [facility] BRONCHOSPAS [facility] M SERVICES 99569 NONSPECIFIC 09-06-2011 [facility] ABNORMAL [facility] ELECTROCARD SERVICES IOGRAM 78749 DIAB 08-10-2011 [facility] W/RENAL [facility] MANIFESTS INC TYPE I [JUV TYPE] UNCNTRL 56216 LEUKOCYTOSI 08-10-2011 [facility] S [facility] UNSPECIFIED SERVICES 72657 PAIN IN 08-10-2011 [facility]INT, MEDICAL SHOULDER IM[facility] REGION 05762 NAUSEA WITH 08-10-2011 [facility] VOMITING [facility] 88607 DIARRHEA 08-10-2011 [facility] 7919 OTHER 08-10-2011 [facility] NONSPECIFIC [facility] FINDING INC EXAMINATION OF URINE 14585 BACKGROUND 06-30-2011 [facility] RETINOPATHY 72218 OBST 01-23-2011 [facility] CHRONIC [facility] BRONCHITIS INC W/ACUTE BRONCHITIS 94030 SHORTNESS 01-23-2011 [facility] 71052 OTHER 01-23-2011 [facility] DYSPNEA [facility] SERVICE RESPIRATORY ABNORMALITI ES 4739 UNSPECIFIED 10-21-2010 [facility] SINUSITIS [facility] INTERNAL MEDI 490 BRONCHITIS 10-21-2010 [facility] NOT VALLEY SPECIFIED INTERNAL ACUTE OR MEDI CHRONIC V571 OTHER 05-22-2010 [facility] THERAPY INC 32346 DIAB 03-17-2010 [facility] W/UNSPEC PHARMACY COMP TYPE I #591 [JUV TYPE] UNCNTRL 5283 CELLULITIS 06-08-2009 [facility] AND ABSCESS [facility] OF ORAL INTERNAL SOFT MED TISSUES 6826 CELLULITIS 05-25-2009 [facility] AND ABSCESS [facility] OF LEG INTERNAL EXCEPT FOOT MED 40571 DIABETES 04-24-2009 [facility] W/KET[facility]ACIDO MED LAB SIS TYPE II/UNS TYPE UNCNTRL 6869 UNSPEC 03-19-2009 [facility] LOCAL MED LAB INFECTION SKIN&SUBCUT ANEOUS TISSUE 2859 UNSPECIFIED 03-01-2009 [facility] ANEMIA MED LAB V5869 LONG-TERM 02-26-2009 [facility] (CURRENT) MED LAB USE OF OTHER MEDICATIONS 0389 UNSPECIFIED 02-20-2009 [facility] SEPTICEMIA IDEAL INTERNAL MED 82573 SEPSIS 02-20-2009 [facility] IDEAL INTERNAL MED V4970 LOWER LIMB 02-20-2009 [facility] AMPUTATION [facility]BULANCE STATUS SERVICE UNSPEC LEVEL 85080 ATHEROSLERO 02-16-2009 [facility] & [facility] ART CYTOLOGY LAB EXTREMITIES W/GANGRENE 18167 DIAB 02-15-2009 [facility] W/PERIPH [facility] CIRC D/O INC TYPE II/UNS TYPE UNCNTRL 50962 DEHYDRATION 02-15-2009 [facility] INC 7078 CHRONIC 02-15-2009 [facility] ULCER OF [facility] OTHER INC SPECIFIED SITE Medications Na ND Rx Da Fi Fi Am Da Di Ph RX Ph St me C No te ll ll ou ys ag ar # ys at rm s nt no ma ic us Or Da si cy ia de te s n re d AT 11 08 10 00 57 3 ME 38 MC Ac RA 70 -1 -0 .0 D 36 KE ti C- 10 7- 8- 00 CA 46 WA ve TA 02 20 20 RE 3 E IN 22 09 09 JR 3 PH CR AR WI EA MA LL M CY IA M LL F C MA 00 06 10 01 30 5 ME 37 MC Ac PA 90 -2 -0 .0 D 00 KE ti P 41 3- 8- 00 CA 59 WA ve 50 98 20 20 RE 0 E 0 86 09 09 JR MG 1 PH AR WI TA MA LL BL CY IA ET M LL F C BA 11 07 10 01 57 3 ME 37 MC Ac ZA 70 -2 -0 .0 D 71 KE ti 10 2- 8- 00 CA 20 WA ve NV 04 20 20 RE 7 E OT 62 09 09 JR EC 3 PH T AR WI CR MA LL EA CY IA M M LL F C BI 00 06 10 01 3. 9 ME 37 MC Ac SA 71 -2 -0 00 D 00 KE ti C- 30 3- 8- 0 CA 59 WA ve EV 10 20 20 RE 6 E AC 90 09 09 JR 5 PH 10 AR WI MA LL MG CY IA M MOREJON LL F PP C OS IT OR Y NA 00 09 09 00 60 30 WA 70 MC Ac DO 37 -1 -2 .0 L- 36 KE ti LO 81 5- 4- 00 MA 97 WA ve L 17 20 20 RT 3 E 40 10 09 09 JR 1 PH MG AR WI MA LL TA CY IA BL M ET #5 F 91 00 06 09 00 30 3 ME 37 MC Ac 40 -2 -2 .0 D 00 KE ti 60 3- 4- 00 CA 57 WA ve 35 20 20 RE 4 E 70 09 09 JR 5 PH AR WI MA LL CY IA M LL F C LA 00 09 09 00 10 28 WA 70 MC Ac NT 08 -1 -2 .0 L- 36 KE ti US 82 5- 4- 00 MA 97 WA ve 22 20 20 RT 5 E 10 03 09 09 JR 0 3 PH UN AR WI IT MA LL /M CY IA L M #5 F AL 91 MOREJON 53 09 09 00 30 15 WA 70 MC Ac LF 74 -1 -2 .0 L- 37 KE ti AM 60 8- 4- 00 MA 41 WA ve ET 27 20 20 RT 7 E HO 20 09 09 JR XA 5 PH ZO AR WI LE MA LL -T CY IA MP M #5 F DS 91 TA BL ET ZO 00 09 09 00 14 14 WA 44 MC Ac LP 09 -1 -2 .0 L- 79 KE ti ID 30 5- 4- 00 MA 70 WA ve EM 07 20 20 RT 2 E 40 09 09 JR TA 1 PH RT AR WI RA MA LL TE CY IA M 10 #5 F 91 MG TA BL ET ME 00 09 09 00 60 30 WA 70 MC Ac TF 78 -1 -2 .0 L- 36 KE ti OR 15 5- 4- 00 MA 97 WA ve WA 05 20 20 RT 4 E N 06 09 09 JR HC 1 PH L AR WI 50 MA LL 0 CY IA MG M #5 F TA 91 BL ET 00 09 09 00 30 3 ME 38 MC Ac 40 -0 -2 .0 D 83 KE ti 60 3- 4- 00 CA 72 WA ve 35 20 20 RE 6 E 70 09 09 JR 5 PH AR WI MA LL CY IA M LL F C Procedures Procedure DOS Code Location Performer Comment JEFE 8417 [facility] FREEMAN N ABOVE 9 [facility] KNEE INC INC Encounters Encounter Start End Date Code Location Performer Type Date HOME [facility], 7 7 HOME [facility]PATIENT [facility] [place] [facility], 7 7 HOME [facility] [place] [facility] 7 7 HOME INPATIENT [facility] [place] [facility] 6 6 HOME INPATIENT HEALTH [facility] - 6 6 [facility] L[facility]DIA - 6 6 [facility] 6 6 HOME INPATIENT [facility]ALTH [facility] [place] [facility], 5 5 DIST OTHER HEALTH DEPT [facility] 5 5 DIST OTHER HEALTH DEPT [facility] L[facility] - 5 5 [facility] L[facility] - 3 3 [facility] - 3 3 [facility] - 3 3 [facility]PATIENT [facility] - 2 2 [facility] - 2 2 [facility] 2 2 [facility] L[facility] - 2 2 [facility] L[facility] 2 2 [facility] L[facility] - 2 2 [facility] - 2 2 [facility] L[facility] - 2 2 [facility]PAT[facility]EN [facility] L[facility] 1 1 [facility]EN [facility] L[facility]IA [facility] 1 1 [facility] OUT[facility]EN [facility] L[facility]DIA - 0 0 [facility] OUTPATIEN INC HOME [facility], 9 9 DIST OTHER HEALTH DEPT [facility], 9 9 DIST OTHER HEALTH DEPT [facility], 9 9 DIST OTHER HEALTH DEPT MEAT TRIMMER [facility] 9 9 [facility] - OTHER E [facility] 9 9 [facility] OTHER E [facility] 9 9 [facility] OTHER E [facility] 9 9 [facility] - OTHER E [facility] L[facility] - 9 9 [facility] INPATIENT INC
--- OUTSIDE RECORDS SUMMARY | 2017-08-02 11:37 | External Medical Summary Rpt | CCD ---
Author Author , NICOLA PETERSEN Address Unknown Phone [email or web address] Team Providers Care Email Designer Name Role Phone PILY HSIEH, Unavailable Unavailable PILY HSIEH [facility] Unavailable Unavailable SERVICE, [facility] Unavailable Unavailable SERVICE, [facility] Unavailable Unavailable [place], [facility] Unavailable Unavailable LAB, [facility], Unavailable Unavailable [facility] Unavailable Unavailable TRANSPORTATION SER, [facility] Unavailable Unavailable CENTER, [facility] Unavailable Unavailable CARE, [facility] Unavailable Unavailable INC, [facility] Unavailable Unavailable [facility], [facility], Unavailable Unavailable [facility] Unavailable Unavailable INTERNAL MED, [facility] Unavailable Unavailable INTERNAL MEDI, [facility] INTER[facility] MED[facility], Unavailable Unavailable [facility] RAMSAY [facility] Unavailable Unavailable SERVICES, [facility] Unavailable Unavailable F, [facility] Unavailable Unavailable LLC, [facility], Unavailable Unavailable PLL[facility], [facility] Unavailable Unavailable LAB, [facility]Y [facility] CYTOLOGY LAB [facility] Unavailable Unavailable #[id number], [id number] Unavailable Unavailable EQUIPME, [facility] Unavailable Unavailable #[id number], [id number] Unavailable Unavailable DEPT EQUIPMENT CLEANER AND TESTER, [facility] DEPT EQUIPMENT CLEANER AND TESTER [facility] Unavailable Unavailable DEPT [facility], [facility] DEPT [facility] Unavailable Unavailable AGENCY, [facility] Unavailable Unavailable MEDICAL EQUI, [facility], Unavailable Unavailable [facility] Purpose Continuity of Care Document - 02-15-2009 through 2016 Problems Code Diagnosis DOS Provider Status J441 CHRONIC 07-15-2017 [facility] PULMONARY [facility] CARE DZ W/EXACERBAT ION [id number] UNSPECIFIED 07-07-2017 [facility] [...] [facility] URINARY HEALTH INCONTINENC AGENCY E [id number] ACQUIRED 05-15-2017 [facility] ABSENCE OF HEALTH LEFT LEG AGENCY ABOVE KNEE I739 PERIPHERAL 12-23-2016 [facility] DISEASE [place] UNSPECIFIED R69 ILLNESS 12-17-2016 [facility] UNSPECIFIED TRANSPORTAT ION SER J4520 MILD 10-06-2016 [facility] UNCOMPLICAT ED [id number] LAC W/O FB 07-23-2016 [facility] RT [facility] FINGER W/O INC DAMAGE NAIL INIT [id number] LAC W/O FB 07-23-2016 [facility] UNS [facility], W/O DAMAGE PLLC NAIL INITIAL Z794 LONG-TERM 07-23-2016 [facility] CURRENT USE [facility] OF INSULIN INC E1165 TYPE 2 06-21-2016 [facility] CARE WITH HYPERGLYCEM IA I50004B LACERATION 06-14-2016 [facility] W/O FOREIGN [facility] BODY LT INC WRIST INITIAL ENC [id number] OPEN BITE 06-14-2016 [facility] OF LEFT PHYSICIANS, WRIST PLLC INITIAL ENCOUNTER S07764 ACQUIRED 06-14-2016 [facility] ABSENCE OF [facility] UNSPECIFIED INC LEG BELOW KNEE R300 DYSURIA 09-06-2015 [facility] LA Z23 ENCOUNTER 06-07-2015 [facility] IMMUNIZATIO HLTH DEPT N [place]IL[place] 30164 DIAB W/OTH 05-28-2015 [facility] MANIFESTS [facility] TYPE II/UNS INTERNAL NOT MED UNCNTRL 94905 05-28-2015 [facility] TRANSPORTAT ION SER 09734 DIAB W/O 05-22-2015 [facility] COMP TYPE HEALTH DEPT II/UNS NOT EQUIPMENT CLEANER AND TESTER STATED UNCNTRL 2810 PERNICIOUS 05-22-2015 [facility] ANEMIA HEALTH DEPT EQUIPMENT CLEANER AND TESTER 4019 UNSPECIFIED 05-22-2015 [facility] ESSENTIAL HEALTH DEPT HYPERTENSIO EQUIPMENT CLEANER AND TESTER N 8972 TRAUMAT AMP 05-22-2015 [facility] LEG HEALTH DEPT UNILAT@OR EQUIPMENT CLEANER AND TESTER ABVE KNEE W/O COMP 46655 DIAB W/O 05-08-2015 [facility] MENTION AND COMP TYPE MEDICAL II/UNS TYPE EQUI UNCNTRL 8977 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 COMPLICATED 4439 UNSPECIFIED 04-23-2015 [facility] PERIPHERAL [facility] VASCULAR INTERNAL DISEASE MED 14484 ULCER OF 04-23-2015 [facility] OTHER PART VALLEY OF FOOT INTERNAL MED 13510 EXTRINSIC 04-13-2015 [facility], PH[facility]ACY UNSPECIFIED LLC 27831 DIAB W/O 12-18-2014 [facility] COMP TYPE I VALLEY [JUV] NOT INTERNAL STATED MED UNCNTRL 2662 OTHER 12-18-2014 [facility] B-COMPLEX VALLEY DEFICIENCIE INTERNAL S MED 7295 PAIN IN 12-18-2014 [facility] SOFT VALLEY TISSUES OF INTERNAL LIMB MED 2724 OTHER AND 09-18-2014 [facility] UNSPECIFIED PHYSICIANS [place] HYPERLIPIDE UNA 7851 PALPITATION 09-18-2014 [place] [address] BORDERLINE 07-05-2014 [facility] GLAUC OPEN GRE ANGLE BL FINDINGS LOW RSK 13959 UNSPECIFIED 07-05-2014 [place] [address] OTHER 07-05-2014 [facility] VITREOUS GRE OPACITIES 496 CHRONIC 09-14-2013 [facility] OBSTRUCTION MEDICAL NEC EQUIPME 32439 PRESSURE 09-14-2013 [facility] ULCER HOME BUTTOCK MEDICAL EQUIPME 7854 GANGRENE 09-14-2013 [facility] MEDICAL EQUIPME 7291 UNSPECIFIED 05-17-2013 [facility]ALGIA PH[facility] AND [place] MYOSITIS 04357 ASTHMA, 02-09-2013 [facility] UNSPECIFIED VALLEY , INTERNAL UNSPECIFIED MED STATUS 8974 TRAUMAT AMP 02-09-2013 [facility] LEG UNILAT VALLEY LEVL NOT INTERNAL SPEC W/O MED COMP 6829 CELLULITIS 01-14-2013 [facility] AND ABSCESS VALLEY OF INTERNAL UNSPECIFIED MEDI SITE 48685 INSOMNIA 01-07-2013 [facility] UNSPECIFIED VALLEY INTERNAL MEDI 2767 HYPERPOTASS 11-30-2012 [facility] EMIA VALLEY INTERNAL MED 34203 HTN CKD UNS 11-23-2012 [facility] W/CKD VALLEY STAGE I INTERNAL THRU STAGE MED IV/UNS 5859 CHRONIC 11-23-2012 [facility] KIDNEY [facility] DISEASE INTERNAL UNSPECIFIED MED 3319 UNSPECIFIED 11-21-2012 [facility] [place] [address] UNSPECIFIED 11-21-2012 [facility] ARTERY [facility] OCCLUSION W/INFARCT 4730 CHRONIC 11-21-2012 [facility] [facility] SINUSITIS [facility] 5849 ACUTE 11-21-2012 [facility] FAILURE SERVICES UNSPECIFIED V4975 LOWER LIMB 11-21-2012 [facility] AMPUTATION, [facility] BELOW KNEE INC 18658 LATERAL 07-28-2012 [facility] EPICONDYLIT [facility] IS OF ELBOW INTERNAL MEDI 33060 ENTHESOPATH 07-28-2012 [facility] Y OF VALLEY UNSPECIFIED INTERNAL SITE MEDI 1101 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-2012 [facility] OSIS OF VALLEY NAIL INTERNAL MEDI 3536 PHANTOM 07-05-2012 [facility] LIMB VALLEY INTERNAL MEDI V0481 NEED 05-17-2012 [facility] PROP[facility] VACCINATION &INOCULATIO N FLU 5990 URINARY 02-29-2012 [facility] TRACT [facility] INFECTION INC SITE NOT SPECIFIED 7881 DYSURIA 02-16-2012 [facility] VALLEY INTERNAL MEDI V0382 NEED PROPH 11-04-2011 [facility] VACCINATION [facility] AGAINST INTERNAL STREP MED PNEUMONE 4660 ACUTE 09-06-2011 [facility] BRONCHITIS [facility]Y SERVICES 32190 ACUTE 09-06-2011 [facility] BRONCHOSPAS [facility] M SERVICES 54430 NONSPECIFIC 09-06-2011 [facility] ABNORMAL EMERGENCY ELECTROCARD SERVICES IOGRAM 73190 DIAB 08-10-2011 [facility] W/RENAL [facility] MANIFESTS INC TYPE I [JUV TYPE] UNCNTRL 39121 LEUKOCYTOSI 08-10-2011 [facility] S [facility] UNSPECIFIED SERVICES 20163 PAIN IN 08-10-2011 [place] [facility], MEDICAL SHOULDER IMAGING ASS REGION 84909 NAUSEA WITH 08-10-2011 [facility] VOMITING [facility]ERGENCY SERVICES 02041 DIARRHEA 08-10-2011 [facility] 7919 OTHER 08-10-2011 [facility] NONSPECIFIC [facility] FINDING INC EXAMINATION OF URINE 26679 BACKGROUND 06-30-2011 [facility] RETINOPATHY 33231 OBST 01-23-2011 [facility] CHRONIC [facility] BRONCHITIS INC W/ACUTE BRONCHITIS 46071 SHORTNESS 01-23-2011 [place] OF BRE[facility] 46511 OTHER 01-23-2011 [facility] DYSPNE[facility] SERVICE RESPIRATORY ABNORMALITI ES 4739 UNSPECIFIED 10-21-2010 [facility] SINUSITIS VALLEY INTERNAL MEDI 490 BRONCHITIS 10-21-2010 [facility] NOT VALLEY SPECIFIED INTERNAL ACUTE OR MEDI CHRONIC V571 OTHER 05-22-2010 [facility] THERAPY INC 52542 DIAB 03-17-2010 [facility] W/UNSPEC PHARMACY COMP TYPE I #591 [JUV TYPE] UNCNTRL 5283 CELLULITIS 06-08-2009 [facility] AND ABSCESS VAL[facility] OF ORAL INTERNAL SOFT MED TISSUES 6826 CELLULITIS 05-25-2009 [facility] AND ABSCESS [facility] OF LEG INTERNAL EXCEPT FOOT MED 13863 DIABETES 04-24-2009 [facility] W/KETOACIDO MED LAB SIS TYPE II/UNS TYPE UNCNTRL 6869 UNSPEC 03-19-2009 [facility] LOCAL MED LAB INFECTION SKIN&SUBCUT ANEOUS TISSUE 2859 UNSPECIFIED 03-01-2009 [facility] ANEMIA MED LAB V5869 LONG-TERM 02-26-2009 [facility] (CURRENT) MED LAB USE OF OTHER MEDICATIONS 0389 UNSPECIFIED 02-20-2009 [facility] SEPTICEMIA [place] INTERNAL MED 44598 SEPSIS 02-20-2009 [facility] [place] INTERNAL MED V4970 LOWER LIMB 02-20-2009 [facility] AMPUTATION AMBULANCE STATUS SERVICE UNSPEC LEVEL 82070 ATHEROSLERO 02-16-2009 [facility] [place] [facility] EXTREMITIES W/GANGRENE 01130 DIAB 02-15-2009 [facility] W/PERIPH [facility] CIRC D/O INC TYPE II/UNS TYPE UNCNTRL 85076 DEHYDRATION 02-15-2009 [facility] INC 7078 CHRONIC 02-15-2009 [facility] ULCER OF [facility] OTHER INC SPECIFIED [...] C- 10 7- 8- 00 CA 46 ID ve TA 02 20 20 RE 3 E IN 22 09 09 JR 3 PH CR AR WI EA MA LL M CY IA M LL F C MA 00 06 10 01 30 5 ME 37 MC Ac PA 90 -2 -0 .0 D 00 KE ti P 41 3- 8- 00 CA 59 ID ve 50 98 20 20 RE 0 E 0 86 09 09 JR MG 1 PH AR WI TA MA LL BL CY IA ET M LL F C BA 11 07 10 01 57 3 ME 37 MC Ac ZA 70 -2 -0 .0 D 71 KE ti 10 2- 8- 00 CA 20 ID ve IL 04 20 20 RE 7 E OT 62 09 09 JR EC 3 PH T AR WI CR MA LL EA CY IA M M LL F C BI 00 06 10 01 3. 9 ME 37 MC Ac SA 71 -2 -0 00 D 00 KE ti C- 30 3- 8- 0 CA 59 ID ve EV 10 20 20 RE 6 E AC 90 09 09 JR 5 PH 10 AR WI MA LL MG CY IA M MOREJON LL F PP C OS IT OR Y NA 00 09 09 00 60 30 WA 70 MC Ac DO 37 -1 -2 .0 L- 36 KE ti LO 81 5- 4- 00 MA 97 ID ve L 17 20 20 RT 3 E 40 10 09 09 JR 1 PH MG AR WI MA LL TA CY IA BL M ET #5 F 91 00 06 09 00 30 3 ME 37 MC Ac 40 -2 -2 .0 D 00 KE ti 60 3- 4- 00 CA 57 ID ve 35 20 20 RE 4 E 70 09 09 JR 5 PH AR WI MA LL CY IA M LL F C LA 00 09 09 00 10 28 WA 70 MC Ac NT 08 -1 -2 .0 L- 36 KE ti US 82 5- 4- 00 MA 97 ID ve 22 20 20 RT 5 E 10 03 09 09 JR 0 3 PH UN AR WI IT MA LL /M CY IA L M #5 F AL 91 MOREJON 53 09 09 00 30 15 WA 70 MC Ac LF 74 -1 -2 .0 L- 37 KE ti AM 60 8- 4- 00 MA 41 ID ve ET 27 20 20 RT 7 E HO 20 09 09 JR XA 5 PH ZO AR WI LE MA LL -T CY IA MP M #5 F DS 91 TA BL ET ZO 00 09 09 00 14 14 WA 44 MC Ac LP 09 -1 -2 .0 L- 79 KE ti ID 30 5- 4- 00 MA 70 ID ve EM 07 20 20 RT 2 E 40 09 09 JR TA 1 PH RT AR WI RA MA LL TE CY IA M 10 #5 F 91 MG TA BL ET ME 00 09 09 00 60 30 WA 70 MC Ac TF 78 -1 -2 .0 L- 36 KE ti OR 15 5- 4- 00 MA 97 ID ve ID 05 20 20 RT 4 E N 06 09 09 JR HC 1 PH L AR WI 50 MA LL 0 CY IA MG M #5 F TA 91 BL ET 00 09 09 00 30 3 ME 38 MC Ac 40 -0 -2 .0 D 83 KE ti 60 3- 4- 00 CA 72 ID ve 35 20 20 RE 6 E 70 09 09 JR 5 PH AR WI MA LL CY IA M LL F C Procedures Procedure DOS Code Location Performer Comment JEFE 8417 [facility] N ABOVE 9 [facility] KN[facility] INC INC Encounters Encounter Start End Date Code Location Performer Type Date HOME [facility], 7 7 HOME INPATIENT HEALTH [facility] [place] [facility], 7 7 HOME INPAT[facility] [place] [facility], 7 7 HOME INPATIENT [facility] [place] [facility], 6 6 HOME INPATIENT [facility]ALTH [facility] - 6 6 [facility] OUTPATIEN [facility] L[facility]DIA - 6 6 [facility]EN [facility] 6 6 HOME INPATIENT [facility]ALTH AG[facility] [place] [facility], 5 5 DIST OTHER HEALTH DEPT [facility], 5 5 DIST OTHER HEALTH DEPT [facility] L[facility]DIA - 5 5 [facility] OUTPATIEN [facility] - 3 3 [facility]PATIEN [facility] - 3 3 [facility] OUTPATIEN [facility] - 3 3 [facility] INPATIENT [facility] L[facility]DIA - 2 2 [facility] OUTPATIEN [facility] - 2 2 [facility] OUTPATIEN [facility] - 2 2 [facility] OUTPATIEN [facility] - 2 2 [facility]PATIEN [facility] - 2 2 [facility]PATI[facility] - 2 2 [facility]PATIEN [facility] - 2 2 [facility] - 2 2 [facility]PATI[facility] - 1 1 [facility]PATI[facility] - 1 1 [facility]PATI[facility] - 0 0 [facility] OUTPATIEN INC HOME [facility], 9 9 DIST OTHER HEALTH DEPT [facility], 9 9 DIST OTHER HEALTH DEPT [facility] HOME [facility], 9 9 DIST OTHER HEALTH 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
--- OUTSIDE RECORDS SUMMARY | 2017-08-02 11:37 | External Medical Summary Rpt | CCD ---
Author Author , NICOLA PETERSEN Address Unknown Phone [email or web address] Immunization Name Date Rout CVX Reac Dose Comm Prov Is Faci e tion ent ider Refu lity Give sed n Infl 09-1 Intr 0.5 Hist PD20 No PD20 uenz 8-20 amus mL oric 255 255 a 17 cula al Quad r Info rmat W/Pr ion es - Sour ce Unsp ecif ied Zost 04-2 Subc 121 999 Hist PD20 No PD20 er 0-20 utan oric 255 255 17 eous al Info rmat ion - Sour ce Unsp ecif ied PCV1 04-1 Intr 133 0.5 Hist PD20 No PD20 3 9-20 amus mL oric 255 255 17 cula al r Info rmat ion - Sour ce Unsp ecif ied
--- OUTSIDE RECORDS SUMMARY | 2017-08-02 11:37 | External Medical Summary Rpt | CCD ---
Author Author , NICOLA PETERSEN Address Unknown Phone [email or web address] Immunization Name Date Rout CVX Reac Dose [...]
--- NOTE | 2017-08-02 12:21 | Urgent Treatment Center Report ---
History of Present Issue Date/Time Seen by Provider 08/02/17 1209 Visit Reason Pt arrived:Walked Presenting Problem:FEELS IF SHE HAS A PILL STUCK IN HER THROAT SINCE 8AM Location if Accident: Onset of symptoms date/time:/ or onset unknown for:MEDICAL HX UNKNOWN Have you (or family members/close friends) recently traveled outside the [place]? N If Yes, where/when: Have you had exposure to infectious disease within the past month? TB? Other? Specify: Patient states that she took her medication this morning and she took a small capsule like pill State that she swallowed it down easily but a little later she "burped" and felt like the pill come back up State that she feels like the pill either scratched her throat or that a piece of it may still be there State that she has eaten a sandwhich and some peanut butter along with drinking several glasses of water and was able to swallow without difficulty State that she was just worried and wanted to get it checked out. State that she has not had any breathing difficulty or any problems swallowing just feels like there may be something in there ALLERGIES Coded Allergies: Penicillins (06/14/16) Home Medications Active Scripts Clonidine Hcl (Clonidine) 0.1 MG PO QHS #30 TAB Prov: 11/23/12 Minocycline Hcl (Minocycline 100MG. Capsule) 100 MG PO BID #20 CAP Prov: 06/15/16 Reported Medications Metformin HCL (Metformin) 500 MG PO TID Nadolol (Corgard 40MG Tab) 1 TAB PO BID Simvastatin (Zocor) 20 MG PO QHS ALBUTEROL (Ventolin Hfa) 2 PUFFS IH Q6H6 Gabapentin (Gabapentin 300MG) 300 MG PO BID VERAPAMIL HCL (Verapamil ER) 240 MG PO DAILY Zolpidem Tartrate (Ambien 10MG) 10 MG PO QHS ALBUTEROL (Albuterol 0.083% Neb) 3 ML IN TID Ipratropium [place] (Ipratropium 0.5MG Neb Soln) 2.5 ML IH TID MULTIVITAMIN (One Daily Multivitamin) 1 TAB PO DAILY Insulin Glargine (Lantus Insulin Vial) 20 UNITS SC QHS History Medical History General CAD? No Angina: No ME: No Hypertension? Yes Hyperlipidemia? Yes CHF? No DVT? No PE? No COPD? No Asthma? Yes Anemia? No GERD? No Gastric ulcers? No GI Bleed? No Hernia? No Thyroid Problems? No Hypothyroidism? No CVA? No Seizures? No Diabetes? Yes Insulin Dependent: Yes Insulin Pump: No Home FSBS? Yes Renal Insuffiency? No UTI? No Stones? No BPH? No GB Disease: No Nephritic Syndrome? No Asplenia? No Hepatitis? No Sickle Cell Disease? No Arthritis? No Migraines? No Cataracts? No Glaucoma? No MRSA? No HIV? No TB? No Anxiety? No Depression? No Cancer? No More? 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 Physical Exam Vital Signs Vital Signs Date Time Temp Pulse Resp B/P Pulse O2 O2 Flow FiO2 Ox Delivery Rate 08/02 1140 98.1 89 18 230/96 96 General Appearance normal appearance, WD/WN, no apparent distress Ear, Nose, Throat feels like there is somehthing in her throat or irritated where she took her medication earlier and belched not sure if she belched up the pill or stomach acid Respiratory Status Yes: trachea midline, chest symmetrical, non tender chest. No: respiratory distress. Lung Sounds bilateral: normal breath sounds, wheezing. Cardiovascular normal exam, regular rate/rhythm, no peripheral edema Neurologic alert, normal exam, oriented x 3 Comments Patient state that she does breathing treatments at home and it is time for her treatment, state that she has history of asthma Medical Decision Making LABS/Meds/Orders Pt receiving controlled substance in ED? No Results/Orders Current Medication Orders Sig/Ghanshyam Start time Last Medication Dose Route Stop Time Status Admin Albuterol 2.5 MG ONCE ONE 08/02 1230 DC 08/02 INH 08/02 1231 1231 Albuterol 0 .STK-MED ONE 08/02 1228 DC INH Orders Procedure Date/time Status RT REQUEST ALBUTEROL NEB 08/02 1217 Active NECK SOFT TISSUE 08/02 1215 Active Progress [facility] Progress Notes 1 Date 08/02/17 Time 1220 Comment xray notified awaiting their arrival UTC Progress Notes 2 Comment Patient states that she is feeling much better now and no longer feels like there is something in there State that she does not want to wait for xray state that she wants to go home and rest State that if symptoms return she will come back. Verbalized understanding of risks associated with not having the xray denies difficulty breathing, denies trouble swallowing and able to eat without difficulty Departure Departure Time of Disposition 1301 Disposition DC Home or Self Care(routine) Clinical Impression Primary Impression: Irritated throat Condition STABLE Referrals Pushpa MICHELLE,Goyo (Family): 2 Days-Call Office If symtpoms worse o\\ Patient Instructions Sore Throat Additional Instructions Follow up with family doctor Return if needed If you began to feel something in throat again, having difficulty swallowing, eating drinking or choking feeling go straight to ER Discharge Counseling Counseled pt/family regarding diagnosis, home care, follow up needs at 1303
[2017-08-02 13:13] VITALS: BP 156/98
== END 2017-08-02 13:13 | disposition home or self-care (01) ==
LOC: UTC 11:23
DX: J39.2 Other diseases of pharynx (principal); Z88.0 Allergy status to penicillin; I10 Essential (primary) hypertension; E78.5 Hyperlipidemia, unspecified; J45.909 Unspecified asthma, uncomplicated